=== PATIENT | male | born 1990 | race African-American/Black ===

== ENCOUNTER 2021-09-22 04:05 | Emergency (ER) | payer SELFPAY ==
[~2021-09-22] VITALS: Ht 182.9 cm; Wt 71.2 kg
[2021-09-22 04:17] VITALS: BP 133/70
--- NOTE | 2021-09-22 04:22 | NUR ---
PATIENT TO LOBBY
[2021-09-22] MEDS ORDERED: HYDR25SU91 RC (04:53)
--- NOTE | 2021-09-22 04:55 | NUR ---
DR CRAIG EXAMINING PT
--- NOTE | 2021-09-22 04:55 | NUR ---
PT MOVED TO ER BED 11
[2021-09-22 04:58] VITALS: BP 133/70
--- NOTE | 2021-09-22 04:58 | NUR ---
Patient discharged with v/s stable. Written and verbal after care instructions given and explained. Patient alert, oriented and verbalized understanding of instructions. Ambulatory with steady gait. All questions addressed prior to discharge. ID band removed. Patient advised to follow up with PMD. Rx of ANULSOL-HC given. Patient educated on indication of medication including possible reaction and side effects. Opportunity to ask questions provided and answered. VSS, A/OX4, UNLABORED BREATHING, AMBULATORY, AND CALM DEMEANOR. NO NURSING INTERVENTIONS NEEDED
[2021-09-22] MEDS ORDERED: IBUPROFEN 600 MG TAB PO ONE (05:20)
== END 2021-09-22 04:56 | disposition home or self-care (01) ==
LOC: MED 04:05
DX: K64.4 Residual hemorrhoidal skin tags (principal); F12.90 Cannabis use, unspecified, uncomplicated; Z79.899 Other long term (current) drug therapy
CPT/HCPCS: 99283